=== PATIENT | male | born 1950 | race Caucasian/White ===

== ENCOUNTER 2018-10-06 17:25 | Emergency (ER) | payer BC ==
[2018-10-06] MEDS ORDERED: 0.9 % SODIUM CHLORIDE 1,000 ML BAG IV ONE ×2 (17:47→18:48)
[2018-10-06 17:58] LABS: BASO % 0.1 % (0-6); GRAN % 79.4 % (47-80); HEMATOCRIT 41.8 % (42.0-52.0); HEMOGLOBIN 13.9 gm/dl (14.0-18.0); LYMPH % 9.7 % (16-45); MEAN CELL VOLUME 87.6 fl (81-97); MEAN CORPUSCULAR HEMOGLOBIN 29.1 pg (27-33); MEAN CORPUSCULAR HGB CONC 33.3 g/dl (32-36); MEAN PLATELET VOLUME 11.4 fl (7.4-10.4); MONO % 10.8 % (0-9); PLATELET COUNT 155 K/uL (130-400); RED BLOOD COUNT 4.77 M/uL (4.40-5.70); RED CELL DISTRIBUTION WIDTH 13.8 % (11.5-14.5); WHITE BLOOD COUNT W/O DIFF 10.2 K/uL (4.2-12.2)
--- NOTE | 2018-10-06 18:06 | Emergency Department Record ---
History of Present Illness - General Chief complaint: Vomiting Stated complaint: VOMMITING FOR 3 DAYS Time Seen by Provider: 10/06/18 18:00 Source: Patient, Family Mode of Arrival: Ambulatory Limitations: No limitations - History of Present Illness Initial comments: 68 yo male presents with nausea and vomiting. He states this started about 3 days ago. He denies any fever or abdominal pain. No diarrhea. He states he has not been on any of his usual mediations. He states he is on Methadone and has not been able to take this either. He is treated for chronic neck and spine pain. His PCP is Dr Rogers, His pain doctor is through [place]. He had an MD 14 years ago and has not had any issue since then. MD complaint: Nausea, Vomiting Onset/Timin -: Days(s) Description of Vomiting: Watery Description of Diarrhea: Water Location: Other (No abdominal pain) Severity: Moderate Severity scale (1-10): 10 Quality: Aching Consistency: Constant Improves with: None Worsens with: None Context: Other Associated Symptoms: Denies other symptoms - Related Data Home Medications Medication Instructions Recorded Confirmed Last Taken Albuterol Sulfate [Proair Hfa] 1 - 2 puff IH .EVERY 4-6 HOURS PRN 10/06/1810/06 3 Days Ago ~10/03/18 Aspirin 325 mg PO DAILY 10/06/18 10/06/18 3 Days Ago ~10/03/18 Atorvastatin Calcium [Lipitor] 10 mg PO DAILY 10/06/18 10/06/18 3 Days Ago ~10/03/18 Clopidogrel Bisulfate [Plavix] 75 mg PO DAILY 10/06/18 10/06/18 3 Days Ago ~10/03/18 Magnesium Oxide [Magnesium] 400 mg PO DAILY 10/06/18 10/06/18 3 Days Ago ~10/03/18 Ranitidine HCl [Zantac] 150 mg PO BID 10/06/18 10/06/18 3 Days Ago ~10/03/18 Previous Rx's Medication Instructions Recorded Ondansetron [Zofran Odt] 4 mg PO NOW #10 tab.rapdis 10/06/18 Allergies Allergy/AdvReac Type Severity Reaction Status Date / Time NO KNOWN DRUG ALLERGY Allergy HYPERSENSIT Uncoded 10/06/18 17:38 IVITY Travel Screening - Travel/Exposure Within Last 30 Days Have you traveled within the last 30 days?: No - Travel/Exposure Within Last Year Have you traveled outside the [place] in the last year?: No - Additonal Travel Details Have you been exposed to anyone with a communicable illness?: No - Travel Symptoms Symptom Screening: None Review of Systems Constitutional: Denies: Chills, Fever, Malaise, Weakness Eyes: Denies: Eye discharge ENT: Denies: Congestion, Dental pain Respiratory: Denies: Cough, Dyspnea Cardiovascular: Denies: Chest pain, Syncope Endocrine: Denies: Fatigue, Polydipsia, Polyuria Gastrointestinal: Reports: Nausea, Vomiting. Denies: Abdominal pain, Diarrhea Genitourinary: Denies: Dysuria, Frequency, Hematuria Musculoskeletal: Reports: As per HPI, Back pain, Neck pain Skin: Denies: Bruising, Change in color, Rash Neurological: Denies: Headache Psychiatric: Denies: Anxiety Hematological/Lymphatic: Denies: Blood Clots, Easy bleeding, Easy bruising Past Medical History - SOCIAL HISTORY Smoking Status: Current every day smoker Alcohol Use: None Drug Use: Rare Drug Use Detail:: Marijuana - RESPIRATORY Hx Respiratory Disorders: Yes Hx COPD: Yes - CARDIOVASCULAR Hx Cardiac Cath: Yes Hx Heart Attack: Yes Hx Hypertension: Yes - NEURO Hx Neuro Disorders: No - GI Hx Reflux: Yes Hx Liver Disease: Yes (elevated enzymes) - Hx Genitourinary Disorders: No - ENDOCRINE Hx Endocrine Disorders: No Hx Diabetes: No Hx Thyroid Disease: No - MUSCULOSKELETAL Hx Musculoskeletal Disorders: Yes Hx Arthritis: Yes - PSYCH Hx Psych Problems: No - HEMATOLOGY/ONCOLOGY Hx Cancer: Yes (skin) Family Medical History Any Significant Family History?: Yes Physical Exam - General General Appearance: Alert, Oriented x3, Cooperative, No acute distress Limitations: No limitations - Head Head exam: Atraumatic, Normal inspection - Eye Eye exam: Normal appearance, PERRL. negative: Conjunctival injection, Scleral icterus - ENT ENT exam: Normal exam, Mucous membranes moist Ear exam: Normal external inspection Nasal Exam: Normal inspection Mouth exam: Normal external inspection - Neck Neck exam: Normal inspection - Respiratory Respiratory exam: Normal lung sounds bilaterally. negative: Respiratory distress - Cardiovascular Cardiovascular Exam: Regular rate, Normal rhythm, Normal heart sounds Peripheral Pulses: 2+: Radial (R), Radial (L) - GI/Abdominal GI/Abdominal exam: Soft. negative: Guarding, Tenderness - Rectal Rectal exam: Deferred - exam: Deferred - Extremities Extremities exam: Normal inspection, Full ROM, Normal capillary refill. negative: Tenderness - Back Back exam: Reports: Normal inspection, Full ROM. Denies: Muscle spasm, Rash noted, Tenderness - Neurological Neurological exam: Alert, Normal gait, Oriented X3 - Psychiatric Psychiatric exam: Normal affect, Normal mood - Skin Skin exam: Dry, Intact, Normal color, Warm Course Vital Signs 10/06/18 17:31 Temperature 98.1 F Pulse Rate 85 Respiratory 20 Rate Blood Pressure 128/96 Pulse Ox 98 - Reevaluation(s) Reevaluation #1: 10/06/18 18:42 The labs were reviewed No acute changes on the CBC or CMP 10/06/18 18:49 The patient is doing much better. Nausea and shaking improved He likely was in withdrawal not being able to take his Methadone 10/06/18 20:20 The patient continues to feel greatly improved. No nausea or pain. He is tolerating PO well. We discussed home care, reasons to return immediately and close follow up with his PCP Medical Decision Making - Lab Data Result diagrams: 10/06/18 17:36 10/06/18 17:36 Lab Results 10/06/18 Range/Units 17:36 WBC 10.2 (4.2-12.2) K/uL RBC 4.77 (4.40-5.70) M/uL Hgb 13.9 L (14.0-18.0) gm/dl Hct 41.8 L (42.0-52.0) % MCV 87.6 (81-97) fl MCH 29.1 (27-33) pg MCHC 33.3 (32-36) g/dl RDW 13.8 (11.5-14.5) % Plt Count 155 (130-400) K/uL MPV 11.4 H (7.4-10.4) fl Gran % 79.4 (47-80) % Lymphocytes % 9.7 L (16-45) % Monocytes % 10.8 H (0-9) % Eosinophils % 0.0 (0-6) % Basophils % 0.1 (0-6) % Disposition Disposition: Discharge Clinical Impression: Nausea and vomiting Disposition: Home, Self-Care Condition: (1) Good Instructions: Acute Nausea and Vomiting (ED) Additional Instructions: Creek diet the next 2-3 days Take the Zofran as directed if the nausea returns Return or be seen if you have fever, pain, vomiting. Be seen soon if you are vomiting to avoid narcotic withdrawal Prescriptions: Ondansetron [Zofran Odt] 4 mg PO NOW #10 tab.rapdis Forms: Patient Portal Access Time of Disposition: 20:23 Quality - Quality Measures Quality Measures: N/A - Blood Pressure Screening Does Patient Have Any of the Following: No Blood Pressure Classification: Hypertensive Reading Systolic Measurement: 128 Diastolic Measurement: 96 Screening for High Blood Pressure: < Pre-Hypertensive BP, F/U Documented > [ [id number]] Pre-Hypertensive Follow-up Interventions: Referral to alternative/primary care provider.
[2018-10-06] MEDS ORDERED: ONDANSETRON HCL IV 4 MG/2 ML VIAL IVP ONE (18:07)
[2018-10-06] MEDS ORDERED: MORPHINE SULFATE 10 MG/ML VIAL IVP ONE ×2 (18:07→18:48)
[2018-10-06 18:24] LABS: BLOOD UREA NITROGEN 22 mg/dL (8-23); EST GLOMERULAR FILTRATION RATE > 60 mL/min
[2018-10-06 18:25] LABS: TOTAL PROTEIN 7.7 g/dL (6.6-8.7)
[2018-10-06 18:27] LABS: GLUCOSE,RANDOM 113 mg/dL (74-109)
[2018-10-06 18:29] LABS: ALT/SGPT 13 U/L (<41)
[2018-10-06 18:30] LABS: ALBUMIN 4.1 g/dL (4.0-5.0); ALKALINE PHOSPHATASE 102 U/L (40-129); AST/SGOT 21 U/L (10.0-50.0); BILIRUBIN,DIRECT < 0.2 mg/dL (0-0.3)
[2018-10-06 19:34] LABS: URINE APPEARANCE CLEAR; URINE BILIRUBIN NEGATIVE (NEGATIVE); URINE BLOOD MODERATE (NEGATIVE); URINE COLOR YELLOW; URINE GLUCOSE (UA) NEGATIVE (NEGATIVE); URINE KETONE 15 mg/dL (NEGATIVE); URINE LEUKOCYTE ESTERASE TRACE (NEGATIVE); URINE NITRITE NEGATIVE (NEGATIVE)
[2018-10-06] MEDS ORDERED: ACETAMINOPHEN 500 MG TABLET PO ONE (19:42)
[2018-10-06 19:43] LABS: URINE BACTERIA NONE SEEN; URINE EPITHELIAL CELLS 0 - 2 (FEW); URINE WBC 0 - 2 (0-2/hpf)
[2018-10-06] MEDS ORDERED: ONDANSETRON 4 MG ODT TABLET SL ONE (20:23)
== END 2018-10-06 20:40 | disposition home or self-care (01) ==
LOC: ER 17:25
DX: R11.2 Nausea with vomiting, unspecified (principal); I10 Essential (primary) hypertension; I25.2 Old myocardial infarction; F17.210 Nicotine dependence, cigarettes, uncomplicated
CPT/HCPCS: 99284 ×2; 96376; 96374; 96375; 96361; 85025; 80076; 80048; 81001; J2405; J2270; J7030